=== PATIENT | male | born 1940 | race Caucasian/White ===

== ENCOUNTER 2016-03-04 08:15 | Outpatient (RCR) | payer MEDICARE, OTHER ==
[~2016-03-04 08:15] MED LIST: ASPIRIN 81M81 MG/TA2 PO; FLOMAX 0.40.4 MG/CAP PO; LEVOXYL0.075 MG PO; LOTENSIN HCT 101 TAB PO; PRILOSEC 20MG20 MG PO; ZYLOPRIM 300MG300 MG PO
== END 2016-04-05 12:06 | disposition home or self-care (01) ==
LOC: WSPT 08:15
DX: M25.562 Pain in left knee (principal); M25.561 Pain in right knee
CPT/HCPCS: G8978-GP; G8979-GP; G8980-GP

== ENCOUNTER 2019-08-03 12:00 | Observation (INO) | payer MEDICARE, OTHER ==
[~2019-08-03] VITALS: Ht 170.2 cm; Wt 77.1 kg
[2019-08-04] VITALS (12 sets, daily range): BP systolic 108–137; BP diastolic 64–83; PULSE 52–89; TEMP 97.8–99
[2019-08-04] MEDS ORDERED: LOTENSIN HCT 201 TAB PO (06:32)
[2019-08-04] MEDS ORDERED: LEVOXYL0.137 MG PO (06:33)
[2019-08-04] MEDS ORDERED: PROSCAR 5MG5 MG PO (06:34)
--- NOTE | 2019-08-04 08:00 | NUR ---
SEE PATIENT ADMISSION ASSESSMENT FOR AM SHIFT ASSESSMENT. PATIENT IS A&OX4. VSS. BOWEL SOUNDS ACTIVE ALL FOUR QUADRANTS. PATIENT IS NPO FOR SURGERY. PATIENT DENIES COMPLAINTS OF N/V. POSITIVE PEDAL PULSES EQUAL BILATERALLY. LR HUNG TO GRAVITY FLOW TUBING AND INFUSING TO LEFT HAND IV. PATIENT STATES THAT HE HAS SOME BACK PAIN THIS MORNING THAT HE RATES A 5/10 ON A 0-10 SCALE. PATIENT CONSENT FORM SIGNED AND ON CHART. PATIENT VOIDED PRIOR TO SURGERY. PATIENT DENIES ANY BLOOD PRESENT IN URINE. PATIENT TAKEN TO JOE-OP VIA BED BY JAZZ UMANZOR. WILL WAIT FOR PATIENT ARRIVAL BACK TO ROOM 324 POST-OP.
--- NOTE | 2019-08-04 10:50 | NUR ---
PATIENT HAVING PAIN IN THE URETHRA AND AT TIP OF THE PENIS. NO SLACK SEEN ON THE DOBSON FROM THE TIP OF THE PENIS TO THE STAT LOCK. STAT LOCK REMOVED FROM LEFT LEG AND DOBSON SECURED TO RIGHT LEG WITH FOAM OCCLUSIVE TAPE. CBI INFUSING AT A SLOW TO MODERATE RATE WITH LIGHT PINK DRAINAGE PRESENT IN DOBSON BAG. POST-OP VSS. PATIENT TOLERATING CLEAR LIQUIDS. CALL LIGHT WITHIN REACH. SCD'S TO BLE. PATIENT DENIES ANY OTHER NEEDS AT THIS TIME.
--- NOTE | 2019-08-04 13:43 | NUR ---
Central Supply Technician Supervisor offered prayer and support with patient.
--- NOTE | 2019-08-04 13:50 | NUR ---
PATIENT POST-OP VITALS STABLE AND COMPLETE.
--- NOTE | 2019-08-04 14:00 | NUR ---
CBI INFUSING AT A SLOW RATE WITH LIGHT PINK DRAINAGE PRESENT IN DOBSON BAG WITH A FEW SMALL CLOTS PRESENT. PATIENT GIVEN A SNACK. NO OTHER NEEDS AT THIS TIME.
--- NOTE | 2019-08-04 14:32 | NUR ---
PATIENT REQUESTING PAIN MEDICATION. PATIENT DENIES BLADDER SPASMS AND STATES THAT THE PAIN IS MOSTLY AT THE TIP OF THE URETHRA. PATIENT GIVEN PRN PO TYLENOL AT THIS TIME.
--- NOTE | 2019-08-04 17:50 | NUR ---
PATIENT TAKING ADEQUATE FLUIDS ORALLY. IV TO INT. PATIENT UP AND AMBULATING WITH SURGICAL STAFF IN THE HALLWAYS.
--- NOTE | 2019-08-04 18:57 | NUR ---
REPORT GIVEN TO JAZZ JERRY.
--- NOTE | 2019-08-04 20:00 | NUR ---
Report received. 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 A&Ox3. Assessment complete. VS stable. Denies pain/shortness of breath/nausea. States he does have some heart burn because he didnt take his prilosec this morning. Protonix ordered-given early. CBI running at a slow rate-output continues to be light yellow with occasional sediment. Denies questions/concerns. Plan of care discussed for this shift to include continuing CBI through the night to keep output yellow. Verbalizes understanding. Call light in reach. Will monitor.
[2019-08-05] VITALS (7 sets, daily range): BP systolic 105–134; BP diastolic 64–89; PULSE 58–75; TEMP 97.3–99.2
--- NOTE | 2019-08-05 | NUR ---
Resting eyes closed. No s/s of pain/discomfort. CBI continues to run at a slow rate-output light pink to yellow. Will continue to monitor.
--- NOTE | 2019-08-05 04:58 | NUR ---
Rested well later this shift. CBI continues to run at a slow rate-output has been light pink to yellow with occasional small clot. Received tylenol this shift for pain at cath insertion site/back pain. Has had no nausea/shortness of breath. VS have remained stable. Call light in reach. Will monitor.
--- NOTE | 2019-08-05 07:58 | NUR ---
Patient alert & oriented. Cbi to very slow drip. Pale yellow clear urine. Left wrist Int. Scds ble. He did well with breakfast. Denies nausea. Denies needing pain medication.
--- NOTE | 2019-08-05 12:43 | NUR ---
SW met with patient about DC plan. Patient plan to return home with help care for his . Patient reports that he has two sons and a at home. Client indicated that his EMR contact is [place] [facility] [place] [facility] but does no have that number. Patient reports his PCP Dr. Eris Morse. Patient denies having any DME use or any [facility] Services. SW educated on Home Health Services. Patient reports that his son will provide transportation home. Nothing Further.
--- NOTE | 2019-08-05 12:44 | NUR ---
Patient has been primed & pulled. He had been voiding well, but does report burning, pressure & pain. Bladder scanned. 300mls residual. notifed. Patient has previously been given Azo & tylenol with no relief. [place] & morphine for pain per physican. He is not able to void at this time. Will very closely monitor
--- NOTE | 2019-08-05 13:45 | NUR ---
Patient pain uncontrolled & untolerable. notifed. Ceron reinserted per orders. Urine orange & clear, no clots. He is still in pain, so B&O suppository given. Patient now able to rest. 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
--- NOTE | 2019-08-05 18:46 | NUR ---
Dr. Harkins rounded. Order obtained. Plan of care reviewed. He did well with dinner. Only complaint at this time is of hiccups. Will report off to night nruse
--- NOTE | 2019-08-05 20:00 | NUR ---
Report received, assumed care for nutrition coordinator. Assessment complete. VS remain stable. Denies pain/shortness of breath/nausea. Ceron output orange in color/clear/adequate output. Has increased PO intake significantly. Plan of care discussed for prime and pull in AM and continuing to increase PO intake. Verbalizes understanding. Call light in reach. WIll monitor.
--- NOTE | 2019-08-05 21:30 | NUR ---
Called requesting something to help him sleep. Melatonin given per dr bauer. Will monitor.
--- NOTE | 2019-08-06 03:19 | NUR ---
Rested well post melatonin. Denied pain/shorntess of breath/nausea. VS remained stable. UOP adequate. Denies needs. Call light in reach. Will monitor.
[2019-08-06 03:23] VITALS: BP 117/72; PULSE 70; TEMP 99.3
--- NOTE | 2019-08-06 05:38 | NUR ---
Ceron cath primed with 250 NS-pulled at this time. Instructions given on six cup routine. Verbalizes understanding. Call light in reach. Will monitor.
[2019-08-06 07:35] VITALS: BP 136/67; PULSE 91; TEMP 98
--- NOTE | 2019-08-06 08:30 | NUR ---
Patient in bed eating breakfast, states he has been able to void without difficulty this AM. Has filled up 6/6 cups, urine appears pink, no clots noted. Encouraged patient to continue drinking water. INT to left forarm noted. Denies further needs at this time.
--- NOTE | 2019-08-06 09:45 | NUR ---
Patient requests tylenol for mild back pain, states chronic. Medications given per orders. Denies further needs at this time.
--- NOTE | 2019-08-06 10:20 | NUR ---
Discharge education provided to patient. Educated on follow up appointment and when to call provider. All questions answered. INT to left forarm discontinued catheter tip intact. Patient up independently in room. Denies further needs at this time.
--- NOTE | 2019-08-06 10:45 | NUR ---
Patient ambulated out with surgical staff. No further needs at this time.
== END 2019-08-06 10:46 | disposition home or self-care (01) ==
LOC: SURG 08-04 05:56
PROVIDERS: ADMIT Urology
DX: C67.1 Malignant neoplasm of dome of bladder (principal); N40.0 Benign prostatic hyperplasia without lower urinary tract symptoms; I10 Essential (primary) hypertension; E03.9 Hypothyroidism, unspecified; K21.9 Gastro-esophageal reflux disease without esophagitis; M54.5 Low back pain; M10.9 Gout, unspecified; Z87.891 Personal history of nicotine dependence; Z88.2 Allergy status to sulfonamides; Z91.040 Latex allergy status; Z79.82 Long term (current) use of aspirin; Z79.899 Other long term (current) drug therapy; Z98.52 Vasectomy status
CPT/HCPCS: G0378; G0379; J0690; J1100; J1885; J2270; J2405; J2704; J3010; J7120

== ENCOUNTER 2019-08-22 10:05 | Day surgery (SDC) | payer MEDICARE, OTHER ==
[~2019-08-22] VITALS: Ht 170.2 cm; Wt 78.2 kg
[2019-08-22] VITALS (12 sets, daily range): BP systolic 101–141; BP diastolic 58–78; PULSE 58–88; TEMP 97.9–98.8
[~2019-08-22 10:05] MED LIST changes: +LEVOXYL0.137 MG PO; +LOTENSIN HCT 201 TAB PO; +PROSCAR 5MG5 MG PO
--- NOTE | 2019-08-22 19:30 | NUR ---
Pt. sitting up in bed at this time. Pt. is A&OX3, assessment complete. INT to lt. hand patent. Ceron catheter with CBI. Urine is peach colored not clots noted at this time. Pt. denies pain or other needs, call light within reach.
[2019-08-23 04:18] VITALS: BP 134/62; PULSE 64; TEMP 98.2
[2019-08-23 07:43] VITALS: BP 130/65; PULSE 80; TEMP 98.3
--- NOTE | 2019-08-23 07:46 | NUR ---
Up in room with assist of one to help with CBI and harris. Having some pain in penis with the catheter. CBI still in place, slow irrigation. Urine in harris bag clear yellow. Patient returns to bed. Denies additional needs at this time.
--- NOTE | 2019-08-23 10:13 | NUR ---
SW met with the patient to discuss discharge plan. The patient lives in [place] with his , Charles (ph#[phone]). He reports independence with ADLs and does not have any DME. The patient's PCP is Dr. Yoav Morse and he receives his medications at [facility]. He reports no difficulties obtaining his meds. The patient does not have advanced directives in EMR, but he reports that he does have them completed. He states that his son, Julio, is his DPOA-HC. The patient plans to return home with his upon discharge. No additional needs at this time.
--- NOTE | 2019-08-23 10:32 | NUR ---
Prime and pull performed at this time. Catheter care provided prior to removing. Remvoed 30mL saline from balloon. Catheter removed with all intact. Patient tolerates with some discomfort. Pericare provided after catheter removed. Educated patient on use of urinal and 6 cup routine. Encouraged patient to drink water. Patient denies needs at this time.
--- NOTE | 2019-08-23 10:59 | NUR ---
The patient was downgraded to observation status. certified income tax preparer, Giselle, and SW met with the patient to inform of change and to present and read the [place] form outloud to the patient. The patient verbalized understanding and gave SW approval to sign the form on his behalf. The patient was provided with a copy. No additional needs at this time.
--- NOTE | 2019-08-23 11:37 | NUR ---
Sitting up in bed eating lunch. Has been able to void six times. Initial void was pink, cup six clear yellow in color. Patient says that he does have urgency and burning. Explain that this is normal. Patient requests to continue to monitor because last time he was here for this at noon he was no longer able to urinate and they ended up having to reinsert catheter so he wants to make sure he will not run into this issue. Denies additional needs at this time.
--- NOTE | 2019-08-23 12:22 | NUR ---
Patient rating penile pain 10/10 and would like medication for pain. Is still able to void. Does not feel that the Tylenol will be strong enough for the pain and would like a stronger medication. Contacted Dr. Harkins and orders received. Administered [place] as prescribed. Explain that Dr. Harkins will have a script at the office that he can fruit picker for the [place] to take home.
[2019-08-23 12:55] VITALS: BP 128/73; PULSE 81; TEMP 97.4
--- NOTE | 2019-08-23 13:15 | NUR ---
Patient says that he is uncomfortable, feels like he needs to urinate but nothing will come out. Bladder scan done and patient has 375mL in bladder. Message left for Dr. Harkins to contact this nurse.
--- NOTE | 2019-08-23 13:22 | NUR ---
Dr. Harkins provided with update. Will administer B&O suppository at this time. Dr. Harkins says that we may reinsert catheter for patient to discharge with and he will remove tomorrow. Administered B&O at this time. Explain to the patient that Dr. Harkins said that if he is not able to void we will have to discharge him with the catheter and they will take out tomorrow. Patient says that he does not want to go home with the catheter and he would prefer to stay another night. Asked patient if he is nervous about home care of the catheter and he says yes. Explain that the only thing he would need to do with the catheter is know how to drain the bag and we would show him prior to him leaving. Patient says that he is not comfortable with that and would prefer to stay. Patient would like to see if the B&O will help him relax to urinate and if not we can reinsert the catheter at that time.
--- NOTE | 2019-08-23 14:17 | NUR ---
Patient unable to void. Inserted 16fr harris catheter using sterile technique. Lupe area cleaned with three castile napkins and then three betadine swabs. Inserted harris without difficulty. Patient uncomfortable during procedure. Inserted 10mL in balloon. Securement device attached to left thigh. Harris draining clear yellow urine. Automatically receive 400mL of urine back. Patient says that his bladder feels a little better. Patient continues to voice that he does not want to go home with a catheter and would prefer to stay overnight. Explained that I would call Dr. Harkins later with an update and let Dr. Harkins know his concerns.
--- NOTE | 2019-08-23 14:43 | NUR ---
Provided Dr. Harkins with update on patient and that he is requesting to stay over night. Dr. Harkins verbalizes that the patient can stay overnight and to remove catheter in the morning. Patient updated. Denies any further needs at this time.
[2019-08-23 16:21] VITALS: BP 133/73; PULSE 63; TEMP 97.8
--- NOTE | 2019-08-23 17:10 | NUR ---
Patient sitting up in bed eating supper. Says that he feels better now that his bladder is draining with the catheter. Occasionally will get a cramping sensation in his lower abd. Explain that this may be bladder spasms he is experiencing. Explain to the patient that they will remove his harris at 0500 in the morning. Encouraged patient to continue to drink water. Patient denies any additional needs at this time.
[2019-08-23 19:36] VITALS: BP 154/78; PULSE 90; TEMP 99.3
--- NOTE | 2019-08-23 20:00 | NUR ---
PT IN BED, IS ALERT AND ORIENTED X4. HAS DOBSON CATHETER TO BSD WITH YELLOW URINE. SL TO LEFT HAND WITHOUT REDNESS OR SWELLING. REPORTS HEADACHE AND TYLENOL GIVEN WITH HS MEDS. ENCOURAGED TO WALK IN HALLWAY.
--- NOTE | 2019-08-23 21:30 | NUR ---
PT AMBULATED IN HALLWAY, REPORTS PAIN TO BLADDER PREVIOUSLY BUT NOW RATES 1/. WAS GIVEN MELATONIN AND NORCO AT THIS TIME.
[2019-08-23 23:42] VITALS: BP 117/68; PULSE 68; TEMP 98.9
[2019-08-24 03:44] VITALS: BP 128/71; PULSE 70; TEMP 89.9; TEMP 98.9
--- NOTE | 2019-08-24 05:05 | NUR ---
DC'd harris catheter after deflating balloon. Removed without problem. Pt tolerated well.
--- NOTE | 2019-08-24 05:56 | NUR ---
PT REPORTS PAIN TO PENIS AND BLADDER. MEDICATED WITH NORCO AT THIS TIME. HAS VOIDED ONLY SMALL AMOUNT OF URINE AT THIS TIME.
[2019-08-24 07:55] VITALS: BP 131/63; PULSE 86; TEMP 98.8
--- NOTE | 2019-08-24 08:00 | NUR ---
Patient in bed resting. Alert and oriented x 3. Assessment complete. Voiding without difficulties. Denies further needs at this time.
--- NOTE | 2019-08-24 09:50 | NUR ---
Dr. Harkins in to see patient. Complaining of burning with urination. Pyridium ordered.
[2019-08-24 11:26] VITALS: BP 142/69; PULSE 65; TEMP 98.2
--- NOTE | 2019-08-24 13:11 | NUR ---
Patient up ambulating in room, independent, steady gait, states he continues to have burning with urination. Requests pain medications for pain 06/14, medications given per orders.
--- NOTE | 2019-08-24 16:05 | NUR ---
Discharge education provided to patient. Educated on when to call provider. All questions answered. INT discontinued. Denies further needs at this time. Patient ambulated out with surgical staff.
== END 2019-08-24 16:05 | disposition home or self-care (01) ==
LOC: SURG 10:05 → INPTSU 10:05 → SDCO 10:05 → EDSTATUS 12:00 → SURG 12:00 → INPTSU 14:05 → SURG 14:05 → SDCO 08-24 16:05
DX: C67.5 Malignant neoplasm of bladder neck (principal); N52.9 Male erectile dysfunction, unspecified; N40.1 Benign prostatic hyperplasia with lower urinary tract symptoms; N13.8 Other obstructive and reflux uropathy; M10.9 Gout, unspecified; K21.9 Gastro-esophageal reflux disease without esophagitis; I10 Essential (primary) hypertension; E03.9 Hypothyroidism, unspecified; F32.9 Major depressive disorder, single episode, unspecified; E78.00 Pure hypercholesterolemia, unspecified; Z79.82 Long term (current) use of aspirin; Z79.899 Other long term (current) drug therapy; Z98.52 Vasectomy status; Z87.891 Personal history of nicotine dependence; Z80.3 Family history of malignant neoplasm of breast; Z82.49 Family history of ischemic heart disease and other diseases of the circulatory system; Z88.2 Allergy status to sulfonamides; Z91.040 Latex allergy status
CPT/HCPCS: A4314; J0690; J1170; J2405; J2704; J3010; J7120

== ENCOUNTER → 2022-06-09 | Outpatient (CLI) | payer MEDICARE, OTHER | LOC: COL.RAD 11:00 | DX: C67.5 Malignant neoplasm of bladder neck (principal); N28.1 Cyst of kidney, acquired | CPT/HCPCS: Q9967 ==

== ENCOUNTER 2022-10-27 09:45 | Outpatient (RCR) | payer MEDICARE, OTHER | END 2022-11-04 | disposition home or self-care (01) | LOC: WSPT | DX: M43.06 Spondylolysis, lumbar region (principal) ==

== ENCOUNTER → 2023-08-30 | Outpatient (CLI) | payer MEDICARE, OTHER | LOC: MHCPAIN 09:56 | DX: M47.816 Spondylosis without myelopathy or radiculopathy, lumbar region (principal); I10 Essential (primary) hypertension; E78.5 Hyperlipidemia, unspecified; N40.0 Benign prostatic hyperplasia without lower urinary tract symptoms | CPT/HCPCS: G0463 ==

== ENCOUNTER 2023-10-14 08:48 | Inpatient (IN) | payer MEDICARE, OTHER ==
[~2023-10-14] VITALS: Ht 162.6 cm; Wt 77.6 kg
[2023-12-05] MEDS ORDERED: LR 1,000 ML IV SCH (20:00)
[2023-12-06 10:29] LABS: HEMATOCRIT 44.5 % (42.0-52.0); HEMOGLOBIN 15.3 g/dl (13.5-18.0); MEAN CELL VOLUME 90 fl (80.0-100.0); MEAN CORPUSCULAR HEMOGLOBIN 31 pg (27-31); MEAN CORPUSCULAR HGB CONC 34 g/dl (33.0-37.0); MEAN PLATELET VOLUME 9.3 fl (7.4-10.4); PLATELET COUNT 257 K/mm3 (130-400); RED BLOOD COUNT 4.97 M/mm3 (4.20-5.60); REDCELL DISTRIBUTION WIDTH-CV 14.6 % (11.5-14.5)
[2023-12-06 10:42] LABS: CALCIUM 9.7 mg/dL (8.4-10.2); CREATININE, serum 1.21 mg/dL (0.72-1.25); POTASSIUM 3.6 mEq/L (3.5-4.5)
[2023-12-07] VITALS (8 sets, daily range): BP systolic 104–144; BP diastolic 52–86; PULSE 76–100; TEMP 97.2–98.5
[2023-12-07] MEDS ORDERED: dexAMETHasone 10 MG/ML VIAL ONE (06:29)
[2023-12-07] MEDS ORDERED: fentaNYL 50 MCG/ML 2 ML VIAL ONE (06:29)
[2023-12-07] MEDS ORDERED: Acetaminophen 500 MG TAB PO SCH ×2 (06:30→12:45)
[2023-12-07] MEDS ORDERED: Rocuronium 50 MG/5 ML Multi-Dose VIAL ONE ×2 (06:30→09:15)
[2023-12-07] MEDS ORDERED: Midazolam 2 MG/2 ML VIAL ONE (06:30)
[2023-12-07] MEDS ORDERED: Gabapentin 100 MG CAP PO SCH (06:30)
[2023-12-07] MEDS ORDERED: LOTENSIN20 MG PO (07:10)
[2023-12-07] MEDS ORDERED: PRILOSEC 20MG20 MG PO (07:11)
[2023-12-07] MEDS ORDERED: HCTZ 25MG TAB25 MG PO (07:11)
[2023-12-07] MEDS ORDERED: XANAX 0.5MG0.5 MG PO (07:12)
[2023-12-07] MEDS ORDERED: ePHEDrine 50 MG/ML VIAL ONE (07:38)
[2023-12-07] MEDS ORDERED: Topical Skin Adhesive 1 EACH (1 ML) TOP ONE (08:08)
[2023-12-07] MEDS ORDERED: fentaNYL 50 MCG/ML 1 ML SYRINGE/VIAL [PACU/SDC ONLY] IV PRN (08:45)
[2023-12-07] MEDS ORDERED: Ondansetron 4 MG/2 ML VIAL IV PRN ×2 (08:45→10:00)
[2023-12-07] MEDS ORDERED: Meperidine 50 MG/ML 1 ML VIAL IV PRN (08:45)
[2023-12-07] MEDS ORDERED: HYDROmorphone 1 MG/1 ML SYRINGE [PACU/SDC ONLY] IV PRN (08:45)
[2023-12-07] MEDS ORDERED: hydrALAZINE 20 MG/ML 1 ML VIAL IV PRN (08:45)
[2023-12-07] MEDS ORDERED: LR 1,000 ML IV ONE (09:40)
[2023-12-07] MEDS ORDERED: oxyCODONE 5 MG TAB PO PRN (10:00)
[2023-12-07] MEDS ORDERED: LR 1,000 ML IV SCH (10:00)
[2023-12-07] MEDS ORDERED: Naloxone 0.4 MG/ML VIAL IV PRN (10:00)
[2023-12-07] MEDS ORDERED: Morphine 4 MG/ML VIAL IV PRN (10:00)
[2023-12-07] MEDS ORDERED: ALPRAZolam 0.5 MG TAB PO PRN (10:00)
[2023-12-07] MEDS ORDERED: NORCO 325 MG-51 TAB PO (10:02)
[2023-12-07] MEDS ORDERED: Albuterol 0.083% Neb Soln 2.5 MG/3 ML UD IH ONE (11:00)
[2023-12-07] MEDS ORDERED: Gabapentin 100 MG CAP PO ONE (13:59)
[2023-12-07] MEDS ORDERED: Albuterol/Ipratropium 3 MG-0.5 MG/3 ML Neb Soln IH PRN (14:30)
[2023-12-07] MEDS ORDERED: Albuterol/Ipratropium 3 MG-0.5 MG/3 ML Neb Soln IH SCH (14:30)
--- NOTE | 2023-12-07 18:37 | NUR ---
PT FOUND WITH NC PRONGS OUT OF NOSE RESTING ON CHEEK. O2 CHECKED VIA PULSE OX AND PT SATTING 93%. O2 TAKEN OFF, BREATHING TX DONE.
--- NOTE | 2023-12-07 22:40 | NUR ---
PT RESTING IN BED, ALERT AND ORIENTEDX4. ASSESSED PT. BOWEL ARE HYPO AND PT HAS NO PASSED GAS YET. PT WAS ABLE TO GET UP AND WALK AROUND UNIT TO RELIEVE GAS PAIN AND HAS BEEN BELCHING. PT RATES PAIN 7/10 IN THE LOWER ABDOMEN AND REQUESTED PAIN PILLS AFTER LAYING DOWN. PT DOBSON IS DRAINING, CLEAR AND YELLOW. GAVE ZOSYN. IV FLUIDS STILL RUNNING. NO OTHER COMPLAINTS AT THIS TIME. CALL LIGHT WITHIN REACH.
[2023-12-08] VITALS (11 sets, daily range): BP systolic 105–148; BP diastolic 40–80; PULSE 78–106; TEMP 98.5–99.7
--- NOTE | 2023-12-08 00:45 | NUR ---
pt a&ox4 resting in bed. vss. x5 lap sites and 1 midline incisions are cdi. harris to dd w clear yellow urine output. pt reports minimal pain. scds to ble. fluids infusing into right forearm IV. pt denies needs at this time. call light in reach.
--- NOTE | 2023-12-08 06:09 | NUR ---
harris discontinued without difficulty. encouraged patient to push fluids today, pt stresses concerns about not being able to urinate.
[2023-12-08 06:18] LABS: MEAN CELL VOLUME 89 fl (80.0-100.0); MEAN CORPUSCULAR HGB CONC 35 g/dl (33.0-37.0); MEAN PLATELET VOLUME 9.6 fl (7.4-10.4); PLATELET COUNT 226 K/mm3 (130-400); RED BLOOD COUNT 4.11 M/mm3 (4.20-5.60); REDCELL DISTRIBUTION WIDTH-CV 14.4 % (11.5-14.5)
[2023-12-08 06:19] LABS: MEAN CORPUSCULAR HEMOGLOBIN 31 pg (27-31)
[2023-12-08 06:20] LABS: HEMATOCRIT 36.5 % (42.0-52.0)
[2023-12-08 06:21] LABS: HEMOGLOBIN 12.7 g/dl (13.5-18.0)
[2023-12-08 06:48] LABS: CALCIUM 8.4 mg/dL (8.4-10.2); CREATININE, serum 2.01 mg/dL (0.72-1.25); MAGNESIUM 1.2 mg/dL (1.6-2.6); POTASSIUM 3.5 mEq/L (3.5-4.5)
[2023-12-08] MEDS ORDERED: Levothyroxine 0.112 MG,Levothyroxine 0.025 MG PO SCH (07:00)
[2023-12-08] MEDS ORDERED: Omeprazole 20 MG **** subs to Pantoprazole 40 MG PO SCH (07:00)
[2023-12-08] MEDS ORDERED: Magnesium Sulfate 8% 50 ML IV ONE (07:30)
[2023-12-08 07:55] LABS: BAND 6 % (0-10); LYMPHOCYTE 9 % (20.0-51.0); NEUTROPHILS 81 % (42.0-75.2); PLATELET ESTIMATE NORMAL (NORMAL)
--- NOTE | 2023-12-08 08:00 | NUR ---
PATIENT LAYING IN BED, AAOX4. EATING BREAKFAST. HEAD TO TOE ASSESSMENT COMPLETED. MORNING MEDS GIVEN. PATIENT REPORTS PAIN TO THE LEFT SIDE, PAIN MEDICATIONS GIVEN. ASSISTED PATIENT TO BATHROOM, THEN TO CHAIR. SITTING UPRIGHT. CHAIR ALARM IN PLACE, NONSKID SOCKS ON, AND CALL LIGHT IN REACH.
[2023-12-08] MEDS ORDERED: oxyCODONE 5 MG TAB PO ONE (08:45)
[2023-12-08] MEDS ORDERED: BENAZEPRIL 20 MG PO SCH (09:00)
[2023-12-08] MEDS ORDERED: Allopurinol 300 MG TAB PO SCH (09:00)
[2023-12-08] MEDS ORDERED: hydroCHLOROthiazide 25 MG TAB PO SCH (09:00)
[2023-12-08] MEDS ORDERED: [UNRECOGNIZED DRUG - OTHER] PO SCH (09:00)
[2023-12-08] MEDS ORDERED: Lisinopril 20 MG TAB PO SCH (09:00)
[2023-12-08] MEDS ORDERED: Sennosides/Docusate 8.6-50 MG TAB PO SCH (10:43)
[2023-12-08] MEDS ORDERED: Polyethylene Glycol 3350 17 GM PDS PO SCH (10:44)
--- NOTE | 2023-12-08 12:40 | NUR ---
Drop Forger Helper attended clinical rounds with the team and therapy was ordered for patient. SW met with patient to discuss discharge planning. Patient lives alone in [place] and advised his , Charles four years ago. Patient sees Dr. Galindo at [facility] for primary care and gets his medications from [facility] with no difficulties. Patient is independent with ADLS, including driving and does not use any DME. Patient has two sons, Rancho (ph#[phone]) and Víctor. Patient believes Víctor is his DPOA-HC. Patient plans to return home at time of discharge. Discharge Plan: Home
[2023-12-08] MEDS ORDERED: oxyCODONE 5 MG TAB PO PRN (13:00)
--- NOTE | 2023-12-08 20:45 | NUR ---
Patient assessed at this time, see shift assessment, reports pain to abdomen and back, PS of 7/10, medicated with oxycodone, agreeable for a walk at this time, with IV infusing well on left forearm, with 6 lap sites edges well approximated, denies further needs, call light and personal items within reach, will continue to monitor.
--- NOTE | 2023-12-08 21:38 | NUR ---
Patient ambulated the hallway, due meds given at this time, given xanax per request, denies further needs.
[2023-12-09 00:09] VITALS: BP 149/82; PULSE 93; TEMP 98.4
[2023-12-09 00:58] VITALS: BP_SYST 149
[2023-12-09 04:24] VITALS: BP 149/54; PULSE 78; TEMP 98.4
[2023-12-09 04:52] VITALS: BP_SYST 149
[2023-12-09 07:08] LABS: BASO # 0.1 K/mm3 (0.0-0.2); BASO % 0.4 % (0.0-2.0); EOS # 0.4 K/mm3 (0.0-0.7); EOS % 3.6 % (0.0-4.0); GRAN # 7.9 K/mm3 (1.4-6.5); GRAN % 66.3 % (42.2-75.2); HEMOGLOBIN 11.8 g/dl (13.5-18.0); LYMPH # 2.3 K/mm3 (1.2-3.4); LYMPH % 19.5 % (20.0-51.0); MEAN CELL VOLUME 90 fl (80.0-100.0); MEAN CORPUSCULAR HEMOGLOBIN 30 pg (27-31); MEAN CORPUSCULAR HGB CONC 33 g/dl (33.0-37.0); MEAN PLATELET VOLUME 9.5 fl (7.4-10.4); MONO # 1.2 K/mm3 (0.1-0.6); MONO % 9.8 % (1.7-9.3); PLATELET COUNT 186 K/mm3 (130-400); RED BLOOD COUNT 3.93 M/mm3 (4.20-5.60); REDCELL DISTRIBUTION WIDTH-CV 14.7 % (11.5-14.5)
[2023-12-09 07:20] LABS: HEMATOCRIT 35.5 % (42.0-52.0)
[2023-12-09 07:32] VITALS: BP 154/86; PULSE 78; TEMP 98.4
[2023-12-09] MEDS ORDERED: Magnesium Oxide 400 MG TAB PO SCH (08:00)
[2023-12-09 08:15] VITALS: BP_SYST 154
--- NOTE | 2023-12-09 08:15 | NUR ---
Pt. sitting up in bed. Pt. is A&Ox3, assessment complete. INT to lt. forearm patent. Pt. denies pain or other needs, call light within reach.
[2023-12-09 08:35] LABS: CALCIUM 9.1 mg/dL (8.4-10.2); CREATININE, serum 2.03 mg/dL (0.72-1.25); MAGNESIUM 1.6 mg/dL (1.6-2.6); POTASSIUM 3.6 mEq/L (3.5-4.5)
[2023-12-09] MEDS ORDERED: AMOXICILLIN/CLA1 TA1 PO (08:40)
[2023-12-09] MEDS ORDERED: NORVASC 5MG5 MG/TAB PO (08:42)
--- NOTE | 2023-12-09 09:13 | NUR ---
Initial visit; Patient very pleasant and was receptive to Orthotic/Prosthetic Practitioner. Patient spoke of his 's and remembers Orthotic/Prosthetic Practitioner ministering to her and spoke of the difference grief has made in his life. He doesn't want to leave his home even though it's too large, but it's what's in it that he's attached to. Orthotic/Prosthetic Practitioner suggested that he might consider getting an "Alert" device for around his neck in case of a fall at home and perhaps hiring someone to check on him several times a week. This may help him feel safer at home and also provide concerns about his safety that his children may have. He agreed. Orthotic/Prosthetic Practitioner listened a bit more and then offered God's blessings and will keep Albaro in her prayers.
--- NOTE | 2023-12-09 11:47 | NUR ---
Pt. has met discharge criteria. INT discontinued from lt. forearm. Reviewed and gave discharge packet to the pt. Pt. voices understanding. Pt. escorted out.
== END 2023-12-09 11:49 | disposition home or self-care (01) | DRG 659 ==
LOC: SURG 12-07 05:39 → SDCO 12-07 05:39 → EDSTATUS 12-07 07:30 → SURG 12-07 11:40 → SDCO 12-07 11:40 → SURG 12-07 11:41 → SDCO 12-07 11:41 → SURG 12-07 11:41
PROVIDERS: Internal Medicine; ADMIT Urology
PROC: 8E0W4CZ Robotic Assisted Procedure of Trunk Region, Percutaneous Endoscopic Approach (ICD-10-PCS; 2023-12-07)
PROC: 0TB14ZZ Excision of Left Kidney, Percutaneous Endoscopic Approach (ICD-10-PCS; principal; 2023-12-07 07:30)
DX: N28.89 Other specified disorders of kidney and ureter (principal); J69.0 Pneumonitis due to inhalation of food and vomit; J96.01 Acute respiratory failure with hypoxia; E87.20 Acidosis, unspecified; F41.9 Anxiety disorder, unspecified; F32.A Depression, unspecified; I10 Essential (primary) hypertension; K21.9 Gastro-esophageal reflux disease without esophagitis; D72.829 Elevated white blood cell count, unspecified; K44.9 Diaphragmatic hernia without obstruction or gangrene; E03.9 Hypothyroidism, unspecified; E83.42 Hypomagnesemia; D64.9 Anemia, unspecified; N40.0 Benign prostatic hyperplasia without lower urinary tract symptoms; R97.20 Elevated prostate specific antigen [PSA]; N17.9 Acute kidney failure, unspecified; N52.9 Male erectile dysfunction, unspecified; M10.9 Gout, unspecified; E78.5 Hyperlipidemia, unspecified; Z85.51 Personal history of malignant neoplasm of bladder; Z86.79 Personal history of other diseases of the circulatory system; Z79.899 Other long term (current) drug therapy; Z79.84 Long term (current) use of oral hypoglycemic drugs; Z88.2 Allergy status to sulfonamides; Z91.040 Latex allergy status; Z23 Encounter for immunization
CPT/HCPCS: A4314; A9284; J0690; J1100; J2250; J2270; J2543; J2704; J2795; J3010; J3475; J7120